=== PATIENT | female | born 1960 | race Caucasian/White ===

== ENCOUNTER 2024-07-11 17:59 | Emergency (ER) | payer BC, MEDICAID ==
[~2024-07-11] VITALS: Ht 157.5 cm; Wt 57.0 kg
[2024-07-11 18:09] VITALS: BP 106/80; PULSE 109; TEMP 98.2; O2SAT 97
[2024-07-11] MEDS ORDERED: CEPH-585 PO (20:11)
[2024-07-11] MEDS ORDERED: SULF1TAB49 PO (20:11)
[2024-07-11] MEDS: sulfamethoxazole/trimethoprim DS (800/160mg) tablet PO ONE (20:39)
[2024-07-11] MEDS: CefTRIAXone 1000mg IM Kit (w/lidocaine diluent) IM ONE (20:40)
[2024-07-11 20:44] VITALS: RESP 20
== END 2024-07-11 20:46 | disposition home or self-care (01) ==
LOC: ER 18:00
DX: L03.811 Cellulitis of head [any part, except face] (principal)
CPT/HCPCS: 96372; 99283; J0696